=== PATIENT | female | born 1935 | race Caucasian/White ===

== ENCOUNTER → 2019-05-11 | Outpatient (CLI) | payer MEDICARE ==
[2019-05-11 07:17] LABS: HEMOGLOBIN A1C 7.2 % (4.5-6.2)
== END ==
LOC: FB.LABRIV 04:13
PROVIDERS: ATTEND Family Medicine
DX: E11.9 Type 2 diabetes mellitus without complications (principal)
CPT/HCPCS: 36415; 83036

== ENCOUNTER 2019-12-26 08:35 | Emergency (ER) | payer MEDICARE ==
--- NOTE | 2019-12-26 09:12 | EDM.PDOC ---
ED HPI GENERAL MEDICAL PROBLEM - General Stated Complaint: LOWER ABD PAIN Time Seen by Provider: 12/26/19 10:20 Source of Information: Reports: Patient, Alf Records History Limitations: Reports: Other (dementia) - History of Present Illness INITIAL COMMENTS - FREE TEXT/NARRATIVE: pt is a resident at [facility], with Hx of dementia, sent here with c/o lower abd pain , there is no Hx of fever chills urinary sx or emesis, last BM was yesterday, pt here appear comfortable and she is unable to provide reliable Hx or ROS seeming secondary to underlining dementia. Abdomen Pain Score (Numeric/FACES): 4 - Related Data Allergies Allergy/AdvReac Type Severity Reaction Status Date / Time NSAIDS (Non-Steroidal Allergy Cannot Verified 05/09/18 11:39 Anti-Inflamma Remember Home Meds: Home Meds Acetaminophen [Tylenol Extra Strength] 1,000 mg PO BID 04/21/18 [History] Aspirin [Lo-Dose Aspirin EC] 81 mg PO DAILY 04/21/18 [History] Calcium Carbonate/Vitamin D3 [Calcium 500-Vit D3 200 Tablet] 1 tab PO BID 04/21/18 [History] Carboxymethylcellulose Sodium [Refresh Tears 0.5%] 2 drop EYEBOTH BID 04/21/18 [History] Citalopram Hydrobromide [Celexa] 15 mg PO DAILY 04/21/18 [History] Lactulose 20 g PO BID 04/21/18 [History] Multivitamin [Multivitamins] 1 tab PO DAILY 04/21/18 [History] Sennosides/Docusate Sodium [Senna-S] 2 each PO BID 04/21/18 [History] traMADol HCl [Tramadol HCl] 50 mg PO BID 04/21/18 [History] Amantadine [Symmetrel] 100 mg PO DAILY #30 tablet 04/24/18 [Rx] metFORMIN [Glucophage] 500 mg PO WITHBREAKFAST #30 tablet 04/24/18 [Rx] Acetaminophen [Tylenol] 650 mg PO Q4H PRN 05/09/18 [History] Diclofenac Sodium [Voltaren] 100 gm TP QID PRN 05/09/18 [History] Magnesium Hydroxide [Milk of Magnesia] 30 ml PO DAILY PRN 05/09/18 [History] Testosterone Propionate Cream 1 applic TRDERM DAILY 05/09/18 [History] bisacodyL [Dulcolax] 10 mg RC DAILY PRN 05/09/18 [History] guaiFENesin 200 mg PO Q4H PRN 05/09/18 [History] Past Medical History HEENT History: Reports: Impaired Vision, Other (See Below) Other HEENT History: optic atrophy Cardiovascular History: Reports: Heart Failure, Hypertension, Other (See Below) Other Cardiovascular History: Hyperlipidemia Gastrointestinal History: Reports: Chronic Diarrhea, Other (See Below) Other Gastrointestinal History: Constipation Genitourinary History: Reports: Urinary Incontinence, Other (See Below) Other Genitourinary History: bladder overactive 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: Musculoskeletal History: Reports: Osteoporosis Neurological History: Reports: MS Psychiatric History: Reports: Dementia, Depression Endocrine/Metabolic History: Reports: Diabetes, Type II, Osteoporosis - Infectious Disease History Infectious Disease History: Reports: Chicken Pox - Past Surgical History HEENT Surgical History: Reports: Cataract Surgery Other HEENT Surgeries/Procedures: Presence of intracular lens GI Surgical History: Reports: Colonoscopy Female Surgical History: Reports: Other (See Below) Other Female Surgeries/Procedures: vaginal atrophy, ulceration of vulva Social & Family History - Family History Family Medical History: Noncontributory - Caffeine Use Caffeine Use: Reports: Coffee Caffeine Use Comment: Daily ED ROS GENERAL - Review of Systems Review Of Systems: Unable To Obtain (dementia) Reason Not Obtained: dementia Constitutional: Denies: Fever ED EXAM, GENERAL - Physical Exam Exam: See Below Exam Limited By: Other (dementia) General Appearance: Alert Eye Exam: Bilateral Eye: Normal Inspection Nose: Normal Inspection Throat/Mouth: Normal Inspection, Normal Oropharynx Head: Atraumatic, Normocephalic Neck: Normal Inspection, Supple, Non-Tender, Full Range of Motion Respiratory/Chest: No Respiratory Distress, Lungs Clear, Normal Breath Sounds Cardiovascular: Normal Peripheral Pulses, Regular Rate, Rhythm GI/Abdominal: Normal Bowel Sounds, Soft, Tender, Other (tender across lower abd, feels little distended, no guarding. ). No: Guarding Back Exam: Normal Inspection Extremities: Normal Inspection, Normal Range of Motion Neurological: Alert, Oriented, CN II-XII Intact Psychiatric: Normal Affect Skin Exam: Warm Course - Vital Signs Text/Narrative:: labs / imaging studies results were reviewed. pt is resting comfortably here , she has no signs of acute abd on exam. pt has UTI and she is stable for outpatient mng. Cipro and supportive mng were prescribed. - Orders/Labs/Meds Orders: Active Orders 24 hr Category Date Time Status Abdomen Ltd [US] Stat Exams 12/26/19 10:32 Taken Labs: Laboratory Tests 12/26/19 12/26/19 12/26/19 Range/Units 09:30 09:30 09:30 WBC 7.2 (4.5-12.0) X10-3/uL RBC 4.33 (3.23-5.20) x10(6)uL Hgb 12.6 (11.5-15.5) g/dL Hct 40.5 (30.0-51.3) % MCV 93.6 (80-96) fL MCH 29.0 (27.7-33.6) pg MCHC 31.0 L (32.2-35.4) g/dL RDW 14.7 (11.5-15.5) % Plt Count 204 (125-369) X10(3)uL Sodium 142 (135-145) mmol/L Potassium 4.8 (3.5-5.3) mmol/L Chloride 107 (100-110) mmol/L Carbon Dioxide 29 (21-32) mmol/L BUN 26 H (7-18) mg/dL Creatinine 1.4 H (0.55-1.02) mg/dL Est Cr Clr Drug Dosing 27.40 mL/min Estimated GFR (MDRD) 36 L (>60) BUN/Creatinine Ratio 18.6 (9-20) Glucose 241 H D (80-116) mg/dL Calcium 9.9 (8.6-10.2) mg/dL Total Bilirubin 0.4 (0.1-1.3) mg/dL AST 21 D (5-25) IU/L ALT 30 D (12-36) U/L Alkaline Phosphatase 65 (56-112) IU/L Total Protein 7.1 (6.0-8.0) g/dL Albumin 3.1 L (3.2-4.6) g/dL Globulin 4.0 g/dL Albumin/Globulin Ratio 0.8 Amylase 21 L (25-115) U/L Lipase 89 (73-393) U/L Urine Color (YELLOW) Urine Appearance (CLEAR) Urine pH (5.0-6.5) Ur Specific [place] (1.010-1.025) Urine Protein (NEGATIVE) mg/dL Urine Glucose (UA) (NORMAL) mg/dL Urine Ketones (NEGATIVE) mg/dL Urine Occult Blood (NEGATIVE) Urine Nitrite (NEGATIVE) Urine Bilirubin (NEGATIVE) Urine Urobilinogen (NEGATIVE) mg/dL Ur Leukocyte Esterase (NEGATIVE) Urine RBC (0-5) Urine WBC (0-5) Urine Bacteria (NS) 12/26/19 Range/Units 11:59 WBC (4.5-12.0) X10-3/uL RBC (3.23-5.20) x10(6)uL Hgb (11.5-15.5) g/dL Hct (30.0-51.3) % MCV (80-96) fL MCH (27.7-33.6) pg MCHC (32.2-35.4) g/dL RDW (11.5-15.5) % Plt Count (125-369) X10(3)uL Sodium (135-145) mmol/L Potassium (3.5-5.3) mmol/L Chloride (100-110) mmol/L Carbon Dioxide (21-32) mmol/L BUN (7-18) mg/dL Creatinine (0.55-1.02) mg/dL Est Cr Clr Drug Dosing mL/min Estimated GFR (MDRD) (>60) BUN/Creatinine Ratio (9-20) Glucose (80-116) mg/dL Calcium (8.6-10.2) mg/dL Total Bilirubin (0.1-1.3) mg/dL AST (5-25) IU/L ALT (12-36) U/L Alkaline Phosphatase (56-112) IU/L Total Protein (6.0-8.0) g/dL Albumin (3.2-4.6) g/dL Globulin g/dL Albumin/Globulin Ratio Amylase (25-115) U/L Lipase (73-393) U/L Urine Color Yellow (YELLOW) Urine Appearance Cloudy (CLEAR) Urine pH 6.0 (5.0-6.5) Ur Specific [place] 1.020 (1.010-1.025) Urine Protein 100 H (NEGATIVE) mg/dL Urine Glucose (UA) Normal (NORMAL) mg/dL Urine Ketones Negative (NEGATIVE) mg/dL Urine Occult Blood Large H (NEGATIVE) Urine Nitrite Negative (NEGATIVE) Urine Bilirubin Negative (NEGATIVE) Urine Urobilinogen Normal (NEGATIVE) mg/dL Ur Leukocyte Esterase Large H (NEGATIVE) Urine RBC >100 H (0-5) Urine WBC Packed H (0-5) Urine Bacteria Many H (NS) Meds: Medications Discontinued Medications Generic Name Dose Route Start Last Admin Trade Name Freq PRN Reason Stop Dose Admin Acetaminophen 1,000 mg 12/26/19 09:15 12/26/19 11:30 Tylenol Extra Strength PO 12/26/19 09:16 Not Given ONETIME ONE Acetaminophen 1,000 mg 12/26/19 11:30 12/26/19 11:44 Tylenol Extra Strength PO 12/26/19 11:31 1,000 mg ONETIME ONE Administration Departure - Departure Time of Disposition: 12:20 Disposition: Home, Self-Care 01 Clinical Impression: UTI (urinary tract infection) Qualifiers: Urinary tract infection type: acute cystitis Hematuria presence: with hematuria Qualified Code(s): N30.01 - Acute cystitis with hematuria - Discharge Information Referrals: Dante Ibrahim MD [Primary Care Provider] - - My Orders Last 24 Hours: My Active Orders 12/26/19 10:32 Needcheck [US] Stat - Assessment/Plan Last 24 Hours: My Active Orders 12/26/19 10:32 Needcheck [US] Stat
[2019-12-26] MEDS ORDERED: Acetaminophen 500 MG Tab PO ONE ×2 (09:15→11:30)
--- NOTE | 2019-12-26 10:25 | CR ---
INDICATION: Abdominal pain. ABDOMEN, TWO VIEW: Supine and decubitus views of the abdomen with four images were obtained 12/26/19 - no comparison. There is no evidence of free air noted. Air-fluid levels are noted in the right colon. This appearance could be on the basis of localized paralytic ileus such as secondary to appendicitis, pancreatitis or cholecystitis but should be correlated clinically. No significant distension of the bowel loops is identified to strongly suggest a mechanically obstructive process at this time. Depending upon clinical course, however, followup x-rays may be helpful to exclude a mechanically obstructive process that is early or partial. No organomegaly or mass lesions were identified. Multiple phleboliths are noted in the pelvis. Multiple calcifications are noted overlying the area of the right kidney and may represent renal calcinosis. It is difficult to entirely exclude gallstones additionally due to the calculi there. IMPRESSION: 1. Air-fluid levels in the right colon, etiology indeterminate - followup may be warranted. 2. 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 Cholelithiasis also could be present superimposed. Right upper quadrant ultrasound would be confirmatory as felt to be clinically necessary. Report was called to Dr. Benson at 1012 hours. [facility]
[2019-12-26] MEDS ORDERED: Ciprofloxacin in D5W 400 MG in Premix Bag 1 BAG IV ONE ×2 (12:21)
--- NOTE | 2019-12-26 12:57 | US ---
INDICATION: Abdominal pain right upper quadrant. RIGHT UPPER QUADRANT/GALLBLADDER ULTRASOUND: Multiple ultrasonic images were obtained. Detail is less than ideal, apparently due to patient body habitus and inability to cooperate with the examination fully. The gallbladder showed no evidence of calculi and did not appear to be enlarged, measuring approximately 8 cm in maximum diameter. Common bile duct was not visualized. Negative ultrasonic Driver's sign was present. No pericholecystic fluid was noted. No calculi or sludge are noted in the gallbladder. The liver is poorly visualized with the possibility of slightly increased echogenicity raising question of fatty liver. The right kidney appeared abnormal with irregularity of the cortex and thinning of the cortex compatible with renal cortical scarring. The right kidney measured 10.8 x 5.6 x 6.3 cm. Echogenic focus is suggested, which may represent calculus within the right kidney. The aorta and IVC were not evaluated. The pancreas was not adequately seen due to intestinal gas. IMPRESSION: 1. Somewhat limited study with no evidence of cholecystitis or cholelithiasis identified. 2. Renal cortical scarring and thinning. 3. Pancreas and common bile duct not adequately visualized. 4. Possible renal calcinosis. Report was called to Dr. Benson at 12:[address] [facility]
== END 2019-12-26 14:05 | disposition home or self-care (01) ==
LOC: FB.ED 08:35
DX: N30.01 Acute cystitis with hematuria (principal); I11.0 Hypertensive heart disease with heart failure; I50.9 Heart failure, unspecified; E11.9 Type 2 diabetes mellitus without complications; F32.9 Major depressive disorder, single episode, unspecified; F03.90 Unspecified dementia, unspecified severity, without behavioral disturbance, psychotic disturbance, mood disturbance, and anxiety; Z79.84 Long term (current) use of oral hypoglycemic drugs; Z88.6 Allergy status to analgesic agent; Z79.82 Long term (current) use of aspirin; Z79.899 Other long term (current) drug therapy
CPT/HCPCS: 36415; 74019; 76705; 80053; 81001; 82150; 83690; 85027; 87086; 87088; 87186; 96365; 99285; A9270; J0744

== ENCOUNTER 2020-05-31 23:40 | Emergency (ER) | payer MEDICARE ==
[2020-06-01] MEDS ORDERED: Acetaminophen/HYDROcodone 325-10 MG Tab PO ONE (01:10)
[2020-06-01] MEDS ORDERED: LORazepam 1 MG Tab PO ONE (01:13)
--- NOTE | 2020-06-01 13:38 | EDM.PDOC ---
ED HPI GENERAL MEDICAL PROBLEM - General Chief Complaint: Genitourinary Problem Stated Complaint: BLOOD IN CATH Time Seen by Provider: 06/01/20 00:00 Source of Information: Reports: [facility] Records History Limitations: Reports: Other (dementia ) - History of Present Illness INITIAL COMMENTS - FREE TEXT/NARRATIVE: pt with Hx of advanced dementia , comes in from [place] with concerns for hematuria, pt just had earlier in the day suprapubic urinary catheter placed , this evening she was noted to have blood in her catheter bag and was directed here for evaluation, ptis nonverbal seems to be groaning when palpating lower abd , there is no fever or chills , there are no reported other medical concerns. - Related Data Allergies Allergy/AdvReac Type Severity Reaction Status Date / Time NSAIDS (Non-Steroidal Allergy Cannot Verified 06/01/20 00:23 Anti-Inflamma Remember Home Meds: Home Meds Acetaminophen [Tylenol Extra Strength] 1,000 mg PO BID 04/21/18 [History] Calcium Carbonate/Vitamin D3 [Calcium 500-Vit D3 200 Tablet] 1 tab PO BID 04/21/18 [History] Carboxymethylcellulose Sodium [Refresh Tears 0.5%] 2 drop EYEBOTH BID 04/21/18 [History] Citalopram Hydrobromide [Celexa] 20 mg PO DAILY 04/21/18 [History] Lactulose 20 g PO BID 04/21/18 [History] Multivitamin [Multivitamins] 1 tab PO DAILY 04/21/18 [History] Sennosides/Docusate Sodium [Senna-S] 1 each PO BID 04/21/18 [History] traMADol HCl [Tramadol HCl] 50 mg PO BID 04/21/18 [History] Amantadine [Symmetrel] 100 mg PO DAILY #30 tablet 04/24/18 [Rx] metFORMIN [Glucophage] 500 mg PO WITHBREAKFAST #30 tablet 04/24/18 [Rx] Acetaminophen [Tylenol] 650 mg PO Q4H PRN 05/09/18 [History] Diclofenac Sodium [Voltaren] 2 gm TP QID PRN 05/09/18 [History] bisacodyL [Dulcolax] 10 mg RC DAILY PRN 05/09/18 [History] guaiFENesin 200 mg PO Q4H PRN 05/09/18 [History] Acetaminophen/HYDROcodone [Holloway 325-5 MG] 1 tab PO Q6H PRN 06/01/20 [History] Ascorbate Calcium [Vitamin C] 500 mg PO DAILY 06/01/20 [History] Enalapril [Vasotec] 15 mg PO DAILY 06/01/20 [History] Insulin Glargine,Hum.Rec.Anlog [Lantus Solostar] 13 unit SQ 08 06/01/20 [Hist ory] Mineral Oil/Pet Hy-Phl Oint [Aquaphor Healing Ointment] 1 applic TOP Q48H 06/01/20 [History] glipiZIDE [Glipizide Xl] 10 mg PO DAILY 06/01/20 [History] polyethylene glycoL 3350 [MiraLAX] 17 g PO DAILY 06/01/20 [History] Past Medical History HEENT History: Reports: Impaired Vision, Other (See Below) Other HEENT History: optic atrophy Cardiovascular History: Reports: Heart Failure, Hypertension, Other (See Below) Other Cardiovascular History: Hyperlipidemia Gastrointestinal History: Reports: Chronic Diarrhea, Other (See Below) Other Gastrointestinal History: Constipation Genitourinary History: Reports: Urinary Incontinence, Other (See Below) Other Genitourinary History: bladder overactive 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: Musculoskeletal History: Reports: Osteoporosis Neurological History: Reports: MS Psychiatric History: Reports: Dementia, Depression Endocrine/Metabolic History: Reports: Diabetes, Type II, Osteoporosis - Infectious Disease History Infectious Disease History: Reports: Chicken Pox - Past Surgical History Head Surgeries/Procedures: Reports: None HEENT Surgical History: Reports: Cataract Surgery Other HEENT Surgeries/Procedures: Presence of intracular lens GI Surgical History: Reports: Colonoscopy Female Surgical History: Reports: Other (See Below) Other Female Surgeries/Procedures: vaginal atrophy, ulceration of vulva Social & Family History - Family History Family Medical History: No Pertinent Family History - Tobacco Use Tobacco Use Status *Q: Unknown Ever Used Tobacco - Caffeine Use Caffeine Use: Reports: Coffee Caffeine Use Comment: Daily - Recreational Drug Use Recreational Drug Use: No ED ROS GENERAL - Review of Systems Review Of Systems: Unable To Obtain (dementia) Reason Not Obtained: dementia ED EXAM, GENERAL - Physical Exam Exam: See Below Exam Limited By: Other (dementia) General Appearance: Alert Head: Atraumatic Respiratory/Chest: No Respiratory Distress, Lungs Clear Cardiovascular: Normal Peripheral Pulses, Regular Rate, Rhythm GI/Abdominal: Normal Bowel Sounds, Soft, Other (seems to be tender over lower abd , no guarding ) Extremities: Normal Inspection Neurological: Alert Skin Exam: Warm Course - Vital Signs Text/Narrative:: folly bag had 300 cc of red collared urine, Hill was easily flushed several times with nl , labs showed nl hg , urine hematuria , no nitrate. pt has post op expected changes after placement of suprapubic catheter, supportive mng and flushing if needed were recommended . pt was given ativan and hydrocodone for comfort here for abd discomfort related to surgery. Last Recorded V/S: Last Vital Signs Temp 37.2 C 06/01/20 01:05 Pulse 97 06/01/20 01:52 Resp 20 06/01/20 01:52 BP 140/79 06/01/20 01:52 Pulse Ox 97 06/01/20 01:52 - Orders/Labs/Meds Labs: Laboratory Tests 05/31/20 05/31/20 05/31/20 Range/Units 23:50 23:58 23:58 WBC 14.0 H (3.0-10.3) x10-3/uL RBC 4.79 (3.60-5.20) x10(6)uL Hgb 12.9 (11.4-15.5) g/dL Hct 41.9 (34.2-48.2) % MCV 87.5 (76.7-100.5) fL MCH 26.9 (23.9-33.9) pg MCHC 30.7 L (31.9-34.8) g/dL RDW 15.6 (12.3-16.5) % Plt Count 151 (151-488) x10(3)uL MPV 10.3 (7.1-12.4) fL Neut % (Auto) 87.5 H (30.8-76.2) % Lymph % (Auto) 6.6 L (18.4-52.1) % Guthrie % (Auto) 4.8 (4.4-15.7) % Eos % (Auto) 0.6 (0.6-8.1) % Baso % (Auto) 0.5 (0.2-1.5) % Neut # (Auto) 12.2 H (1.5-6.3) x10-3/uL Lymph # (Auto) 0.9 L (1.0-4.4) x10-3/uL [place]uthrie # (Auto) 0.7 (0.3-1.0) x10-3/uL Eos # (Auto) 0.1 (0.0-0.8) x10-3/uL Baso # (Auto) 0.1 (0.0-0.1) x10-3/uL Sodium 140 (135-145) mmol/L Potassium 4.1 (3.5-5.3) mmol/L Chloride 103 (100-110) mmol/L Carbon Dioxide 26 (21-32) mmol/L BUN 24 H (7-18) mg/dL Creatinine 1.4 H (0.55-1.02) mg/dL Est Cr Clr Drug Dosing 24.74 mL/min Estimated GFR (MDRD) 36 L (>60) BUN/Creatinine Ratio 17.1 (9-20) Glucose 217 H D (80-116) mg/dL Calcium 9.4 (8.6-10.2) mg/dL Total Bilirubin 0.4 (0.1-1.3) mg/dL AST 22 (5-25) IU/L ALT 25 D (12-36) U/L Alkaline Phosphatase 58 (56-112) IU/L Total Protein 6.7 (6.0-8.0) g/dL Albumin 2.8 L (3.2-4.6) g/dL Globulin 3.9 g/dL Albumin/Globulin Ratio 0.7 Urine Color Red (YELLOW) Urine Appearance Cloudy (CLEAR) Urine pH 5.0 (5.0-6.5) Ur Specific [place] 1.020 (1.010-1.025) Urine Protein 100 H (NEGATIVE) mg/dL Urine Glucose (UA) Normal (NORMAL) mg/dL Urine Ketones Negative (NEGATIVE) mg/dL Urine Occult Blood Large H (NEGATIVE) Urine Nitrite Negative (NEGATIVE) Urine Bilirubin Negative (NEGATIVE) Urine Urobilinogen Normal (NEGATIVE) mg/dL Ur Leukocyte Esterase Moderate H (NEGATIVE) Urine RBC Packed H (0-5) Urine WBC (0-5) Meds: Medications Discontinued Medications Generic Name Dose Route Start Last Admin Trade Name Freq PRN Reason Stop Dose Admin Hydrocodone Bitart/Acetaminophen 1 tab 06/01/20 01:10 06/01/20 01:22 Holloway 325-10 Mg PO 06/01/20 01:11 1 tab ONETIME ONE Administration Lorazepam 1 mg 06/01/20 01:13 06/01/20 01:22 Ativan PO 06/01/20 01:14 1 mg ONETIME ONE Administration Departure - Departure Time of Disposition: 02:00 Disposition: Home, Self-Care 01 Clinical Impression: Hematuria - Discharge Information Referrals: Dante Ibrahim MD [Primary Care Provider] - Forms: ED Department Discharge Additional Instructions: Irrigate suprapubic catheter with 200mls of Normal Saline every hour until blood in urine lightens up. Make sure to have received 200mls urine output prior to next irrigation. Follow-up in AM with primary care physician and urology (who placed suprapubic catheter). Call with any questions. Sepsis Event Note (ED) - Evaluation Sepsis Screening Result: No Definite Risk - Focused Exam Vital Signs: Vital Signs Pulse Resp BP Pulse Ox 06/01/20 01:52 97 20 140/79 97
== END 2020-06-01 02:10 | disposition home or self-care (01) ==
LOC: FB.ED 23:40
DX: R31.9 Hematuria, unspecified (principal); I11.0 Hypertensive heart disease with heart failure; I50.9 Heart failure, unspecified; F03.90 Unspecified dementia, unspecified severity, without behavioral disturbance, psychotic disturbance, mood disturbance, and anxiety; E11.9 Type 2 diabetes mellitus without complications; G35 Multiple sclerosis; F32.9 Major depressive disorder, single episode, unspecified; Z79.4 Long term (current) use of insulin; Z88.8 Allergy status to other drugs, medicaments and biological substances; Z79.899 Other long term (current) drug therapy
CPT/HCPCS: 36415; 80053; 81001; 85025; 99283; A9270-GY

== ENCOUNTER 2021-04-15 19:12 | Emergency (ER) | payer MEDICARE ==
[2021-04-15] MEDS ORDERED: Lidocaine 2% HCl 6 ML JEL.PF.APP ONE ×2 (19:30→19:33)
[2021-04-15] MEDS ORDERED: Iopamidol 755 Mg/ML 75 ML Bottle IV ONE (20:04)
--- NOTE | 2021-04-15 20:14 | EDM.PDOC ---
ED HPI GENERAL MEDICAL PROBLEM - General Chief Complaint: Genitourinary Problem Time Seen by Provider: 04/15/21 19:20 Source of Information: Reports: Patient History Limitations: Reports: No Limitations - History of Present Illness INITIAL COMMENTS - FREE TEXT/NARRATIVE: Orlando presented to the ED from the [facility] because nursing staff was not able to reinsert a suprapubic cath. - Related Data Allergies Allergy/AdvReac Type Severity Reaction Status Date / Time NSAIDS (Non-Steroidal Allergy Cannot Verified 06/01/20 00:23 Anti-Inflamma Remember Home Meds: Home Meds Acetaminophen [Tylenol Extra Strength] 1,000 mg PO BID 04/21/18 [History] Calcium Carbonate/Vitamin D3 [Calcium 500-Vit D3 200 Tablet] 1 tab PO BID [History] Carboxymethylcellulose Sodium [Refresh Tears 0.5%] 2 drop EYEBOTH BID 04/21/18 [History] Citalopram Hydrobromide [Celexa] 20 mg PO DAILY 04/21/18 [History] Lactulose 20 g PO BID 04/21/18 [History] Multivitamin [Multivitamins] 1 tab PO DAILY 04/21/18 [History] Sennosides/Docusate Sodium [Senna-S] 1 each PO BID 04/21/18 [History] traMADol HCl [Tramadol HCl] 50 mg PO BID 04/21/18 [History] Amantadine [Symmetrel] 100 mg PO DAILY #30 tablet 04/24/18 [Rx] metFORMIN [Glucophage] 500 mg PO WITHBREAKFAST #30 tablet 04/24/18 [Rx] Acetaminophen [Tylenol] 650 mg PO Q4H PRN 05/09/18 [History] Diclofenac Sodium [Voltaren] 2 gm TP QID PRN 05/09/18 [History] bisacodyL [Dulcolax] 10 mg RC DAILY PRN 05/09/18 [History] guaiFENesin 200 mg PO Q4H PRN 05/09/18 [History] Acetaminophen/HYDROcodone [[place] 325-5 MG] 1 tab PO Q6H PRN 06/01/20 [History] Ascorbate Calcium [Vitamin C] 500 mg PO DAILY 06/01/20 [History] Enalapril [Vasotec] 15 mg PO DAILY 06/01/20 [History] Insulin Glargine,Hum.Rec.Anlog [Lantus Solostar] 13 unit SQ 08 06/01/20 [History] Mineral Oil/Pet Hy-Phl Oint [Aquaphor Healing Ointment] 1 applic TOP Q48H 06/01/20 [History] glipiZIDE [Glipizide Xl] 10 mg PO DAILY 06/01/20 [History] polyethylene glycoL 3350 [MiraLAX] 17 g PO DAILY 06/01/20 [History] Past Medical History HEENT History: Reports: Impaired Vision, Other (See Below) Other HEENT History: optic atrophy Cardiovascular History: Reports: Heart Failure, Hypertension, Other (See Below) Other Cardiovascular History: Hyperlipidemia Gastrointestinal History: Reports: Chronic Diarrhea, Other (See Below) Other Gastrointestinal History: Constipation Genitourinary History: Reports: Urinary Incontinence, Other (See Below) Other Genitourinary History: bladder overactive 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: Musculoskeletal History: Reports: Osteoporosis Neurological History: Reports: MS Psychiatric History: Reports: Dementia, Depression Endocrine/Metabolic History: Reports: Diabetes, Type II, Osteoporosis - Infectious Disease History Infectious Disease History: Reports: Chicken Pox - Past Surgical History Head Surgeries/Procedures: Reports: None HEENT Surgical History: Reports: Cataract Surgery Other HEENT Surgeries/Procedures: Presence of intracular lens GI Surgical History: Reports: Colonoscopy Female Surgical History: Reports: Other (See Below) Other Female Surgeries/Procedures: vaginal atrophy, ulceration of vulva Social & Family History - Family History Family Medical History: No Pertinent Family History - Tobacco Use Tobacco Use Status *Q: Unknown Ever Used Tobacco - Caffeine Use Caffeine Use: Reports: Coffee Caffeine Use Comment: Daily - Recreational Drug Use Recreational Drug Use: No ED ROS GENERAL - Review of Systems Review Of Systems: See Below Constitutional: Reports: No Symptoms HEENT: Reports: No Symptoms Respiratory: Reports: No Symptoms Cardiovascular: Reports: No Symptoms Endocrine: Reports: No Symptoms GI/Abdominal: Reports: No Symptoms : Reports: No Symptoms Musculoskeletal: Reports: No Symptoms Skin: Reports: No Symptoms Neurological: Reports: No Symptoms Psychiatric: Reports: No Symptoms ED EXAM, RENAL/ - Physical Exam Exam: See Below Exam Limited By: No Limitations General Appearance: Alert, No Apparent Distress Eye Exam: Bilateral Eye: PERRL Ears: Normal External Exam, Normal Canal Nose: Normal Inspection, Normal Mucosa, No Blood Throat/Mouth: Normal Inspection, Normal Lips, Normal Teeth Head: Atraumatic, Normocephalic Neck: Normal Inspection, Supple, Non-Tender, Full Range of Motion Respiratory/Chest: No Respiratory Distress, Lungs Clear, Normal Breath Sounds, No Accessory Muscle Use, Chest Non-Tender Cardiovascular: Normal Peripheral Pulses, Regular Rate, Rhythm, No Edema, No Gallop, No JVD, No Murmur, No Rub GI/Abdominal: Normal Bowel Sounds, Soft, Non-Tender, No Organomegaly, No Distention, No Abnormal Bruit Extremities: Normal Inspection, Normal Range of Motion, Non-Tender Neurological: Alert, Oriented, CN II-XII Intact Course - Vital Signs Text/Narrative:: Suprapubic cath new [place] 16 was reinserted but it's clogged with blood clots. Will leave the suprapubic cath for now an straight cath her prn until seen by urologist tomorrow Last Recorded V/S: Last Vital Signs Temp 36.1 C 04/15/21 20:55 Pulse 72 04/15/21 20:55 Resp 20 04/15/21 20:55 BP 165/83 H 04/15/21 20:55 Pulse Ox 95 04/15/21 20:55 - Orders/Labs/Meds Meds: Medications Discontinued Medications Generic Name Dose Route Start Last Admin Trade Name [place] PRN Reason Stop Dose Admin Iopamidol 75 ml 04/15/21 20:04 04/15/21 20:55 Iopamidol 755 Mg/Ml 75 Ml Bottle IV 04/15/21 20:05 Not Given ONETIME ONE Lidocaine HCl Confirm 04/15/21 19:33 04/15/21 20:07 Lidocaine 2% Hcl 6 Ml Jel.Pf.Son Administered 04/15/21 19:34 Not Given Dose 6 ml .ROUTE .STK-MED ONE Lidocaine HCl 6 ml 04/15/21 19:30 04/15/21 19:35 Lidocaine 2% Hcl 6 Ml Jel.Pf.Son .XX 04/15/21 19:31 6 ml ONETIME ONE Administration Departure - Departure Time of Disposition: 21:00 Disposition: DC/Tfer to [place] [id number] Condition: Good Clinical Impression: Suprapubic catheter dysfunction - Discharge Information Instructions: Suprapubic Catheter Replacement Referrals: Dante Ibrahim MD [Primary Care Provider] - Forms: ED Department Discharge Additional Instructions: Please read discharge instructions on suprapubic catheter dysfunction Bladder scan Q shift and straight cath if there is 500 ml or more of urine Call the urologist tomorrow and mention that a suprapubic cath was reinserted but it was clogged with clots again. Follow up as needed Sepsis Event Note (ED) - Evaluation Sepsis Screening Result: No Definite Risk
--- NOTE | 2021-04-16 10:52 | CR ---
ABDOMEN ONE VIEW INDICATION: Suprapubic catheter placement FINDINGS: A single AP portable view of the pelvis area was obtained after injection of 5 cc Isovue 370 through a suprapubic catheter. There was reflux of the contrast into the subcutaneous tissues. No flow into the urinary bladder was noted compatible with a completely obstructed suprapubic catheter. The urinary bladder was minimally distended. Pattern of gas and feces visualized is nonspecific. This examination was obtained 04/15/21 and was compared with 01/28/21 abdomen x-ray. [facility]
== END 2021-04-15 21:00 ==
LOC: FB.ED 19:12
DX: T83.098A Other mechanical complication of other urinary catheter, initial encounter (principal); I11.0 Hypertensive heart disease with heart failure; I50.9 Heart failure, unspecified; E11.9 Type 2 diabetes mellitus without complications; Z79.4 Long term (current) use of insulin; Z88.8 Allergy status to other drugs, medicaments and biological substances; Z79.899 Other long term (current) drug therapy
CPT/HCPCS: 51701; 51798; 74018; 99283; A9270

== ENCOUNTER 2021-06-12 15:51 | Emergency (ER) | payer MEDICARE ==
--- NOTE | 2021-06-12 15:57 | EDM.PDOC ---
ED HPI GENERAL MEDICAL PROBLEM - General Stated Complaint: URINARY ISSUE Time Seen by Provider: 06/12/21 15:53 Source of Information: Reports: Patient, M[facility] Records (halfway staff) History Limitations: Reports: Other (Patient with dementia.) - History of Present Illness INITIAL COMMENTS - FREE TEXT/NARRATIVE: 86-year-old female who presents to the emergency department from [facility] urinary to inability to remove the suprapubic tube. The patient has dementia and cannot provide me with any history. All history that I can obtain is from the senior living staff. Apparently, the senior living staff was doing there daily inspection and irrigation of the suprapubic tube and they noted that she had not really been draining that much from the SP tube. They attempted irrigated and met some resistance and then were going to change the SP tube. They fully deflated the balloon (removed 10 mL of fluid) and they remain he resistance to remove the catheter and could not remove it. Therefore, they sent the patient over to the emergency department for changing of the SP tube. The patient had had no antecedent problems and no other complaints. She had an having no fever or vomiting and she had been eating and drinking normally. Not been complaining of any pain. This is all the history that I can obtain. There are no other associated signs or symptoms. There are no other modifying factors. Onset: Today Duration: Constant Location: Reports: Abdomen Quality: Reports: Other (No pain noted. 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 Unsuccessful.) - Related Data Allergies Allergy/AdvReac Type Severity Reaction Status Date / Time NSAIDS (Non-Steroidal Allergy Cannot Verified 06/01/20 00:23 Anti-Inflamma Remember Home Meds: Home Meds Acetaminophen [Tylenol Extra Strength] 1,000 mg PO BID 04/21/18 [History] Calcium Carbonate/Vitamin D3 [Calcium 500-Vit D3 200 Tablet] 1 tab PO BID 04/21/18 [History] Carboxymethylcellulose Sodium [Refresh Tears 0.5%] 2 drop EYEBOTH BID 04/21/18 [History] Citalopram Hydrobromide [Celexa] 20 mg PO DAILY 04/21/18 [History] Lactulose 20 g PO BID 04/21/18 [History] Multivitamin [Multivitamins] 1 tab PO DAILY 04/21/18 [History] Sennosides/Docusate Sodium [Senna-S] 1 each PO BID 04/21/18 [History] traMADol HCl [Tramadol HCl] 50 mg PO BID 04/21/18 [History] Amantadine [Symmetrel] 100 mg PO DAILY #30 tablet 04/24/18 [Rx] metFORMIN [Glucophage] 500 mg PO WITHBREAKFAST #30 tablet 04/24/18 [Rx] Acetaminophen [Tylenol] 650 mg PO Q4H PRN 05/09/18 [History] Diclofenac Sodium [Voltaren] 2 gm TP QID PRN 05/09/18 [History] bisacodyL [Dulcolax] 10 mg RC DAILY PRN 05/09/18 [History] guaiFENesin 200 mg PO Q4H PRN 05/09/18 [History] Acetaminophen/HYDROcodone [[place] 325-5 MG] 1 tab PO Q6H PRN 06/01/20 [History] Ascorbate Calcium [Vitamin C] 500 mg PO DAILY 06/01/20 [History] Enalapril [Vasotec] 15 mg PO DAILY 06/01/20 [History] Insulin Glargine,Hum.Rec.Anlog [Lantus Solostar] 13 unit SQ 08 06/01/20 [History] Mineral Oil/Pet Hy-Phl Oint [Aquaphor Healing Ointment] 1 applic TOP Q48H 06/01/20 [History] glipiZIDE [Glipizide Xl] 10 mg PO DAILY 06/01/20 [History] polyethylene glycoL 3350 [MiraLAX] 17 g PO DAILY 06/01/20 [History] Past Medical History HEENT History: Reports: Impaired Vision, Other (See Below) Other HEENT History: optic atrophy Cardiovascular History: Reports: Heart Failure, Hypertension, Other (See Below) Other Cardiovascular History: Hyperlipidemia Gastrointestinal History: Reports: Chronic Constipation, Chronic Diarrhea Genitourinary History: Reports: Neurogenic Bladder, Urinary Incontinence, Other (See Below) Musculoskeletal History: Reports: Osteoporosis Neurological History: Reports: MS Psychiatric History: Reports: Dementia, Depression Endocrine/Metabolic History: Reports: Diabetes, Type II, Osteoporosis - Infectious Disease History Infectious Disease History: Reports: Chicken Pox - Past Surgical History HEENT Surgical History: Reports: Cataract Surgery Other HEENT Surgeries/Procedures: Presence of intracular lens GI Surgical History: Reports: Colonoscopy Female Surgical History: Reports: Other (See Below) Other Female Surgeries/Procedures: vaginal atrophy, ulceration of vulva Social & Family History - Tobacco Use Tobacco Use Status *Q: Unknown Ever Used Tobacco (Nonsmoker) - Caffeine Use Caffeine Use: Reports: Coffee Caffeine Use Comment: Daily - Alcohol Use Alcohol Use History: No - Living Situation & Occupation Living situation: Reports: Extended Care Facility (Lives at [facility].) ED ROS GENERAL - Review of Systems Review Of Systems: Unable To Obtain Reason Not Obtained: Patient with dementia. ROS unobtainable. ED EXAM, RENAL/ - Physical Exam Exam: See Below Exam Limited By: No Limitations General Appearance: Alert, No Apparent Distress, Obese Eye Exam: Bilateral Eye: Other (Chronic changes in both of her eyes.) Ears: Normal External Exam, Hearing Grossly Normal Nose: Normal Inspection, Normal Mucosa, No Blood Throat/Mouth: Normal Voice, No Airway Compromise, Other (Moist membranes.) Head: Atraumatic, Normocephalic Neck: Normal Inspection, Supple, Non-Tender, Full Range of Motion Respiratory/Chest: No Respiratory Distress, Lungs Clear, Normal Breath Sounds, No Accessory Muscle Use, Chest Non-Tender Cardiovascular: Normal Peripheral Pulses, Regular Rate, Rhythm, No Gallop GI/Abdominal: Normal Bowel Sounds, Soft, Non-Tender, Other (Protuberant. SP tube in the pelvic midline area.) Extremities: Non-Tender, Normal Capillary Refill, Pedal Edema (She has compression stockings on both lower extremities.) Neurological: Alert, No Motor/Sensory Deficits, Disoriented Skin Exam: Warm, Dry, Intact, Normal Color, No Rash Course - Re-Assessments/Exams Free Text/Narrative Re-Assessment/Exam: 06/12/21 16:08: Procedure note: Patient with chronic SP tube. It is clogged and nondraining. The balloon was again firm to be deflated. Using steady direct pressure the SP tube was easily removed. Was a slight amount of resistance initially but it was removed intact. There was blood tinged urine that came out. No clots. There was some sediment in the urine. A 16 [place] catheter was replaced into the SP tube site. There was immediate drainage of urine from this tube. The balloon was then inflated with 10 mL of sterile water. The tube was then irrigated by the nursing staff and is draining well. The patient tolerated this well and there are no apparent complications. The patient now be transported back to the senior living. No changes in therapy at this time. Departure - Departure Time of Disposition: 16:25 Disposition: DC[facility] to [facility] Condition: Good (Improved) Clinical Impression: Blocked suprapubic catheter Qualifiers: Encounter type: initial encounter Qualified Code(s): T83.090A - Other mechanical complication of cystostomy catheter, initial encounter Suprapubic catheter dysfunction Qualifiers: Encounter type: initial encounter Qualified Code(s): T83.010A - Breakdown (mechanical) of cystostomy catheter, initial encounter - Discharge Information Instructions: Suprapubic Catheter Replacement Additional Instructions: The suprapubic catheter was replaced. It appeared to be draining well in the emergency department. There is quite a bit of sediment in the urine and he should continue irrigation of the suprapubic tube as per the primary provider. Back to the emergency department for high fever, unrelenting vomiting, severe weakness or any other concerning signs or symptoms.
== END 2021-06-12 16:37 ==
LOC: FB.ED 15:51
DX: T83.010A Breakdown (mechanical) of cystostomy catheter, initial encounter (principal); I11.0 Hypertensive heart disease with heart failure; I50.9 Heart failure, unspecified; E11.9 Type 2 diabetes mellitus without complications; Z88.8 Allergy status to other drugs, medicaments and biological substances; Z79.4 Long term (current) use of insulin
CPT/HCPCS: 51705; 99283-25

== ENCOUNTER 2021-11-20 14:18 | Emergency (ER) | payer BC, MEDICARE ==
[2021-11-20] MEDS ORDERED: Sodium Chloride 0.9% 10 ML Syringe FLUSH PRN (14:31)
[2021-11-20] MEDS ORDERED: Sodium Chloride 0.45% 1,000 ML IV SCH (14:45)
== END 2021-11-20 16:15 ==
LOC: FB.ED 14:18
DX: E87.1 Hypo-osmolality and hyponatremia (principal); E86.0 Dehydration; I11.0 Hypertensive heart disease with heart failure; I50.9 Heart failure, unspecified; E11.9 Type 2 diabetes mellitus without complications; Z88.8 Allergy status to other drugs, medicaments and biological substances; Z79.4 Long term (current) use of insulin
CPT/HCPCS: 36415; 80048; 99284; 99285

== ENCOUNTER 2021-12-11 13:06 | Emergency (ER) | payer MEDICARE ==
[2021-12-11 13:40] LABS: ESTIMATED GFR 44 mL/min (>60)
[2021-12-11] MEDS ORDERED: Sodium Chloride 0.9% 1,000 ML IV ONE (13:52)
[2021-12-11 16:53] VITALS: BP 170/83; PULSE 86
== END 2021-12-11 16:19 ==
LOC: FB.ED 13:06
DX: N39.0 Urinary tract infection, site not specified (principal); E86.0 Dehydration; I11.0 Hypertensive heart disease with heart failure; I50.9 Heart failure, unspecified; E11.9 Type 2 diabetes mellitus without complications; Z88.8 Allergy status to other drugs, medicaments and biological substances; Z79.4 Long term (current) use of insulin; Z79.899 Other long term (current) drug therapy
CPT/HCPCS: 36415; 80048; 81001; 85027; 86140; 87086; 87088; 87186; 96360; 99284-25; J7030